=== PATIENT | male | born 1940 | race Caucasian/White ===

== ENCOUNTER 2024-03-09 16:56 | Observation (INO) | payer MEDICARE, BC, OTHER ==
[2024-03-09 20:10] VITALS: BMI 30.7
[2024-03-10] MEDS ORDERED: Nitroglycerin 0.4 MG TAB (25 Tab Bottle) SL PRN (03:15)
[2024-03-10] MEDS ORDERED: Ipratropium/Albuterol 3 ML NEB NEB PRN (03:55)
[2024-03-10] MEDS ORDERED: Acetaminophen/Codeine 30-300mg Tablet PO PRN (03:57)
[2024-03-10 05:20] LABS: #Basophils 0.03 10x3/uL (0.0-0.2); #Eosinphils Less than 0.03 10x3/uL (0.0-0.7); %Basophils 0.4 % (0.0-1.0); %Eosinophils 0.3 % (0.0-10.0); %Lymphocytes 19.5 % (21.0-51.0); %Monocytes 7.9 % (0.0-10.0); %Neutrophils 71.5 % (42.0-75.0); Hemoglobin 12.6 g/dL (14.0-18.0); Mean Corpuscular HGB CONC 33.2 g/dL (32.0-36.0); Mean Corpuscular Hemoglobin 32.1 pg (27.0-31.0); Mean Corpuscular Volume 96.9 fL (78.0-98.0); Mean Platelet Volume 9.5 fL (7.4-10.4); Platelet Count 223 10x3/uL (130-400); RBC Distribution Width 13.2 % (11.5-14.5); Red Blood Cell (RBC) Count 3.92 mill/uL (4.70-6.10)
[2024-03-10 05:44] LABS: Anion Gap 11 mmol/L (10-20); BUN (Urea Nitrogen) 16 mg/dL (8.4-25.7); Calc. Creatinine Clearance 80 mL/min (70-130); Calcium 9.4 mg/dL (7.8-10.44); Carbon Dioxide 28 mmol/L (23-31); Cardiac Risk 2.9 (Less than 4.5); Chloride 107 mmol/L (98-107); Cholesterol 135 mg/dl (< 200 Desired); Estimated GFR 80; Glucose 119 mg/dL (83-110); HDL Cholesterol 46 mg/dL (>60 Neg Risk); LDL Cholesterol, Calculated 76 mg/dL; Potassium 4.5 mmol/L (3.5-5.1); Sodium 141 mmol/L (136-145); Triglycerides 67 mg/dL (Less than 150)
[2024-03-10 05:48] LABS: Troponin I Less than 0.010 ng/mL (< 0.028)
[2024-03-10 08:10] LABS: Troponin I Less than 0.010 ng/mL (< 0.028)
[2024-03-10 08:11] VITALS: BP 137/66; TEMP 98
[2024-03-10] MEDS: Ipratropium Bromide 0.06% Nasal Inhaler 15ml EA NARE SCH (09:00)
[2024-03-10] MEDS: Heparin 5,000 UNITS/ML VIAL SC SCH (09:00)
[2024-03-10] MEDS ORDERED: Regadenoson 0.4 MG/5 ML SYRINGE ONE (10:31)
[2024-03-10] MEDS: Tamsulosin HCl 0.4 MG CAP PO SCH (11:52)
[2024-03-10] MEDS: Donepezil HCl 5 MG TAB PO SCH (11:52)
[2024-03-10] MEDS: Pantoprazole DR 40 MG TAB PO SCH (11:52)
[2024-03-10] MEDS: Aspirin 81 mg Enteric Coated Tablet PO SCH (11:52)
[2024-03-10] MEDS: Sertraline 100 MG TAB PO SCH (11:52)
[2024-03-10] MEDS: predniSONE 50 MG TAB PO SCH (11:53)
[2024-03-10] MEDS: Montelukast Sodium 10 mg Tablet PO SCH (11:53)
[2024-03-10] MEDS: Azithromycin 250 MG TAB PO SCH (11:53)
[2024-03-10] MEDS: Lisinopril 10 MG TAB PO SCH (11:53)
[2024-03-10] MEDS ORDERED: Famotidine 20 MG TAB PO SCH (21:00)
[2024-03-10] MEDS ORDERED: Rosuvastatin 20 MG TAB PO SCH (21:00)
[2024-03-10] MEDS ORDERED: Sucralfate 1 GM TAB PO SCH (21:00)
[2024-03-10] MEDS ORDERED: Zolpidem Tartrate 5 MG TAB PO SCH (21:00)
[2024-03-10] MEDS ORDERED: Ezetimibe 10 MG TAB PO SCH (21:00)
[2024-03-11] MEDS ORDERED: Azithromycin 250 MG TAB PO SCH (09:00)
== END 2024-03-10 13:31 | disposition home or self-care (01) ==
LOC: 2SW 19:13
PROVIDERS: ADMIT Family Medicine; ATTEND Internal Medicine
DX: I21.9 Acute myocardial infarction, unspecified (principal); J44.9 Chronic obstructive pulmonary disease, unspecified; J20.9 Acute bronchitis, unspecified; I10 Essential (primary) hypertension; E78.5 Hyperlipidemia, unspecified; F32.A Depression, unspecified; N40.0 Benign prostatic hyperplasia without lower urinary tract symptoms; Z91.041 Radiographic dye allergy status; Z79.82 Long term (current) use of aspirin; Z79.899 Other long term (current) drug therapy; Z90.49 Acquired absence of other specified parts of digestive tract; Z87.891 Personal history of nicotine dependence
CPT/HCPCS: 78452; 80048; 80061; 84484 ×2; 85025; 93017; A9502; J2785; 36415; 96372; G0378; G0379; J1644; J7512

== ENCOUNTER 2025-07-18 12:34 | Emergency (ER) | payer MEDICARE, BC, OTHER ==
[2025-07-18 13:33] LABS: Hematocrit 39.0 % (42.0-52.0); Hemoglobin 12.7 g/dL (14.0-18.0); Mean Corpuscular Hemoglobin 31.6 pg (27.0-31.0); Mean Corpuscular Volume 97.0 fL (78.0-98.0); Platelet Count 128 10x3/uL (130-400); Red Blood Cell (RBC) Count 4.02 mill/uL (4.70-6.10); White Blood Cell (WBC) Count 7.78 10x3/uL (4.8-10.8)
[2025-07-18 13:35] LABS: ALT (SGPT) 17 U/L (Less than 45); AST (SGOT) 19 U/L (11-34); Albumin 3.2 g/dL (3.1-4.5); Alkaline Phosphatase 64 U/L (40-110); Anion Gap 12 mmol/L (10-20); BUN (Urea Nitrogen) 18 mg/dL (8.4-25.7); Bilirubin, Total 0.7 mg/dL (0.3-1.2); Calc. Creatinine Clearance 0 mL/min (70-130); Calcium 8.9 mg/dL (7.8-10.44); Carbon Dioxide 26 mmol/L (23-31); Chloride 106 mmol/L (98-107); Globulin 3.1 g/dL (2.4-3.5); Glucose 163 mg/dL (83-110); Potassium 3.8 mmol/L (3.5-5.1); Sodium 140 mmol/L (136-145)
[2025-07-18 13:58] LABS: #Basophils Less than 0.03 10x3/uL (0.0-0.2); #Eosinophils 0.06 10x3/uL (0.0-0.7); #Monocytes 0.55 10x3/uL (0.11-0.59); #Neutrophils 6.25 10x3/uL (1.40-6.50); %Basophils 0.1 % (0.0-1.0); %Eosinophils 0.8 % (0.0-10.0); %Lymphocytes 12.9 % (21.0-51.0); %Monocytes 6.9 % (0.0-10.0); %Neutrophils 78.9 % (42.0-75.0)
[2025-07-18 14:04] LABS: Macrocytosis SLIGHT = 6-15 cells HPF (0-5); Ovalocytes SLIGHT = 2-5 cells HPF (0-1); Platelet Adequacy Comment Platelets Decreased; Polychromasia SLIGHT = 2-3 cells HPF (0-2)
== END 2025-07-18 16:35 | disposition home or self-care (01) ==
LOC: ERS 12:34
DX: S22.41XA Multiple fractures of ribs, right side, initial encounter for closed fracture (principal); J18.9 Pneumonia, unspecified organism; I10 Essential (primary) hypertension; W19.XXXA Unspecified fall, initial encounter
CPT/HCPCS: 71045; 71250; 80053; 83880; 84484; 85025; 93005